=== PATIENT | male | born 1970 | race Caucasian/White ===

== ENCOUNTER 2023-12-09 18:11 | Emergency (ER) | payer MEDICAID, SELFPAY ==
[2023-12-09 18:40] VITALS: BP 122/74; PULSE 126; RESP 20; TEMP 36.6; O2SAT 99
--- NOTE | 2023-12-09 22:31 | PC.NURSE ---
Patient was called twice up to triage twice and no answer either time.
== END 2023-12-09 22:44 | disposition left against medical advice (07) ==
DX: Z53.21 Procedure and treatment not carried out due to patient leaving prior to being seen by health care provider (principal)
CPT/HCPCS: 99199

== ENCOUNTER 2023-12-11 18:37 | Emergency (ER) | payer OTHER, SELFPAY ==
[2023-12-11 18:43] VITALS: BP 94/78; PULSE 116; RESP 18; TEMP 36.6; O2SAT 97
[2023-12-11 19:44] VITALS: O2SAT 97
--- NOTE | 2023-12-11 22:33 | PC.NURSE ---
patient to desk and states he's leaving. advised to come back to er if symptoms get worse.
== END 2023-12-11 20:00 | disposition left against medical advice (07) ==
LOC: ANHED 22:49
DX: R52 Pain, unspecified (principal)
CPT/HCPCS: 99199